=== PATIENT | female | born 1965 | race Caucasian/White ===

== ENCOUNTER → 2017-11-20 | Outpatient (CLI) | payer BC ==
[~2017-11-20] MED LIST: ESCI5SOL PO; ESOM40CA PO
== END | disposition home or self-care (01) ==
LOC: RAH 13:51
PROVIDERS: ATTEND Nurse Practitioner Adult Health
DX: R22.32 Localized swelling, mass and lump, left upper limb (principal)
CPT/HCPCS: 76882

== ENCOUNTER 2022-12-12 07:00 | Day surgery (SDC) | payer BC ==
[2022-12-09 09:54] LABS: BASOPHILS % (AUTO) 0.5 % (0.0-5.0); EOSINOPHILS % (AUTO) 1.8 % (0.0-8.0); LYMPHOCYTES % (AUTO) 28.4 % (21.0-51.0); MEAN CORPUSCULAR HEMOGLOBIN 30.6 pg (27.0-33.0); MEAN CORPUSCULAR HGB CONC 32.9 g/dL (32.0-36.0); NEUTROPHILS % (AUTO) 64.1 % (40.0-77.0); PLATELET COUNT (AUTO) 295 K/uL (130-400); RED BLOOD CELL COUNT(AUTO) 4.41 MIL/uL (4.00-5.50); RED CELL DISTRIBUTION WIDTH 12.4 % (11.0-15.5); WHITE BLOOD COUNT (AUTO) 8.3 K/uL (4.8-10.8)
[2022-12-09 10:01] VITALS: BP 128/77
[~2022-12-12] VITALS: Ht 160 cm; Wt 67.9 kg
[2022-12-12] VITALS (18 sets, daily range): BP systolic 114–152; BP diastolic 58–88
[~2022-12-12 07:00] MED LIST changes: +CALDOLOR 800MG+NS 250ML 250 ML IV SCH; +CEFAZOLIN SODIUM 1 GM VIAL IVPB PRN; +LACTATED RINGERS 1000ML 1,000 ML IV SCH; +LISI10TA24 PO; +PROG100C11 PO
[2022-12-12] MEDS ORDERED: ROCURONIUM 10MG/1ML SYR 10 MG/ML ML ONE (07:32)
[2022-12-12] MEDS ORDERED: PROPOFOL 10 MG/ML 20ML VIAL IV ONE (07:32)
[2022-12-12] MEDS ORDERED: LIDOCAINE PF 100MG/5ML (2%) SYRINGE 5ML ONE (07:32)
[2022-12-12] MEDS ORDERED: GLYCOPYRROLATE 1 MG/5 ML SYRINGE ONE (07:32)
[2022-12-12] MEDS ORDERED: MIDAZOLAM HCL 1 MG/ML 2ML VIAL ONE (07:32)
[2022-12-12] MEDS ORDERED: FENTANYL CITRATE PF 50 MCG/1 ML 2ML VIAL ONE (07:33)
[2022-12-12] MEDS ORDERED: ONDANSETRON 4MG INJ ONE (08:01)
[2022-12-12] MEDS ORDERED: CEFAZOLIN SODIUM 2 GM VIAL IVPB ONE (08:40)
[2022-12-12] MEDS ORDERED: NEOSTIGMINE 5MG/5ML SYR IV ONE (09:08)
== END 2022-12-12 11:05 | disposition home or self-care (01) ==
LOC: DAH 07:00
PROVIDERS: ATTEND Obstetrics & Gynecology
DX: N95.0 Postmenopausal bleeding (principal); Z20.822 Contact with and (suspected) exposure to COVID-19; N85.8 Other specified noninflammatory disorders of uterus; N85.4 Malposition of uterus; I10 Essential (primary) hypertension; K21.9 Gastro-esophageal reflux disease without esophagitis; Z98.891 History of uterine scar from previous surgery; Z79.899 Other long term (current) drug therapy
CPT/HCPCS: 84703; 85025; 86850 ×2; 86900 ×2; 86901 ×2; 87426; 36415 ×2; 58563; 93005; A4663; J7030 ×2; A4344; A4355; J7120; J3010; J0690 ×2; J3490; J2710; J2001; J2250; J2704; J2405; J1741; A4215; A4223; A4222; A4221